=== PATIENT | male | born 1965 | race Caucasian/White ===

== ENCOUNTER 2020-11-08 13:38 | Inpatient (IN) | payer OTHER ==
[~2020-11-08] VITALS: Ht 180.3 cm; Wt 90.7 kg
[2020-11-08 14:47] LABS: ANION GAP 20.9 mmol/L (8-16); CALCIUM 8.7 mg/dL (8.5-10.1); CARBON DIOXIDE 23.5 mmol/L (21.0-32.0); CREATININE - SERUM 1.1 mg/dL (0.6-1.3); POTASSIUM - SERUM 3.4 mmol/L (3.5-5.1)
[2020-11-08 14:52] LABS: ALBUMIN 2.4 g/dL (3.4-5.0); BILIRUBIN - TOTAL 12.52 mg/dL (0.2-1.3); PROTEIN - SERUM 6.1 g/dL (6.4-8.2)
[2020-11-08 15:08] LABS: BASOPHILS 0.6 % (0-2); EOSINOPHILS 0 % (0-7); HEMATOCRIT 43.6 % (42.0-54.0); HEMOGLOBIN 14.9 g/dL (13.5-17.5); LYMPHOCYTES 4.7 % (15-50); MCH 39.1 pg (26.0-34.0); MCHC 34.2 g/dL (31.0-37.0); MCV 114.4 fL (80.0-100.0); NEUTROPHILS 79.7 % (40-80); PLATELET COUNT 193 10x3/uL (130-400); RBC 3.81 10x6/uL (4.20-6.10); RDW 16.7 % (11.5-14.5); WBC 8.5 10x3/uL (4.8-10.8)
[2020-11-08 15:36] LABS: BILIRUBIN 3+ (NEGATIVE); KETONE NEGATIVE mg/dL (< 1+); NITRITE NEGATIVE (NEGATIVE); UROBILINOGEN 12 mg/dL (< 2)
[2020-11-08] MEDS ORDERED: NORVASC5 MG PO (19:38)
[2020-11-08] MEDS ORDERED: PRINIVIL20 MG PO (19:38)
[2020-11-08] MEDS ORDERED: METOPROLOL TART25 MG PO (19:38)
[2020-11-08 20:00] VITALS: BP 126/77
[2020-11-08 23:00] VITALS: BP 125/95
[2020-11-08] MEDS ORDERED: NEURONTIN 300300 MG PO (23:05)
[2020-11-09 01:40] LABS: UDS - AMPHET NEGATIVE QUAL (NEGATIVE); UDS - BARB NEGATIVE QUAL (NEGATIVE); UDS - BENZO NEGATIVE QUAL (NEGATIVE); UDS - COCAINE NEGATIVE QUAL (NEGATIVE); UDS - OPIATE NEGATIVE QUAL (NEGATIVE); UDS - PCP NEGATIVE QUAL (NEGATIVE); UDS - THC NEGATIVE QUAL (NEGATIVE)
[2020-11-09 02:00] VITALS: BP 117/84
[2020-11-09 05:00] VITALS: BP 134/94
[2020-11-09 05:43] LABS: BASOPHILS 0.6 % (0-2); EOSINOPHILS 0.2 % (0-7); HEMATOCRIT 39.9 % (42.0-54.0); HEMOGLOBIN 13.8 g/dL (13.5-17.5); LYMPHOCYTES 8.5 % (15-50); MCH 39.7 pg (26.0-34.0); MCHC 34.6 g/dL (31.0-37.0); MCV 114.5 fL (80.0-100.0); MEAN PLATELET VOLUME 8.9 fL (7.4-10.4); MONOCYTES 14.3 % (2-11); NEUTROPHILS 76.4 % (40-80); PLATELET COUNT 170 10x3/uL (130-400); RBC 3.48 10x6/uL (4.20-6.10); RDW 16.7 % (11.5-14.5); WBC 7.9 10x3/uL (4.8-10.8)
[2020-11-09 05:57] LABS: APTT 33.6 SECONDS (22.8-39.4); INR 1.49 (0.85-1.17); PROTIME 16.7 SECONDS (11.6-15.0)
[2020-11-09 06:20] LABS: ALBUMIN 2.1 g/dL (3.4-5.0); ALKALINE PHOSPHATASE 133 U/L (30-120); ALT (SGPT) 44 U/L (10-68); BILIRUBIN - TOTAL 14.55 mg/dL (0.2-1.3); CHLORIDE - SERUM 98 mmol/L (98-107); MAGNESIUM - SERUM 1.7 mg/dL (1.8-2.4); PHOSPHOROUS 1.7 mg/dL (2.5-4.9); POTASSIUM - SERUM 3.2 mmol/L (3.5-5.1); PROTEIN - SERUM 5.4 g/dL (6.4-8.2); SODIUM 136 mmol/L (136-145)
[2020-11-09 06:24] LABS: CALC OSMOLALITY 270 mosm/kg (275-300); CARBON DIOXIDE 30.1 mmol/L (21.0-32.0); CREATININE - SERUM 0.7 mg/dL (0.6-1.3); GLUCOSE 76 mg/dL (74-106); UREA NITROGEN 13 mg/dL (7-18); eGFR NON AFRICAN AMERICAN > 90 mL/min (90-120)
--- NOTE | 2020-11-09 09:35 | NUR ---
PATIENT ASSISTED TO BSC. VERY SHAKEY AND UNSTEADY ON FEET. EXPELLED MODERATE AMOUNT HARD STOOL.
--- NOTE | 2020-11-09 10:00 | NUR ---
ASSISTED TO STAND AT BEDSIDE TO VOID. VERY SHAKEY. LARGE AMOUNT URINE ON FLOOR AND CLOTHING. ASSISTED TO CHANGE INTO GOWN.
--- NOTE | 2020-11-09 13:21 | NUR ---
REPORT CALLED TO [facility]/SURG. STATES ROOM IS NOT CLEAN. WILL CALL WHEN READY.
[2020-11-09 15:14] VITALS: BP 101/66; BMI 27.9
[2020-11-09 16:54] VITALS: BP 122/74
[2020-11-10] VITALS (7 sets, daily range): BP systolic 83–103; BP diastolic 40–68; Ht 180.3 cm; Wt 90.7 kg
--- NOTE | 2020-11-10 06:04 | NUR ---
I have reviewed this patient and I concur with the Shift Assessment completed by the Licensed Practical Nurse today this shift.
[2020-11-10 06:27] LABS: BASOPHILS 0.5 % (0-2); EOSINOPHILS 0.1 % (0-7); HEMATOCRIT 36.4 % (42.0-54.0); HEMOGLOBIN 12.5 g/dL (13.5-17.5); LYMPHOCYTES 10.6 % (15-50); MCHC 34.3 g/dL (31.0-37.0); MEAN PLATELET VOLUME 8.9 fL (7.4-10.4); MONOCYTES 11.8 % (2-11); PLATELET COUNT 177 10x3/uL (130-400); RBC 3.12 10x6/uL (4.20-6.10); RDW 16.7 % (11.5-14.5); WBC 8.1 10x3/uL (4.8-10.8)
[2020-11-10 06:37] LABS: MCV 116.6 fL (80.0-100.0)
[2020-11-10 06:55] LABS: BILIRUBIN - TOTAL 17.16 mg/dL (0.2-1.3); CALCIUM 7.8 mg/dL (8.5-10.1); CARBON DIOXIDE 28.1 mmol/L (21.0-32.0); MAGNESIUM - SERUM 1.6 mg/dL (1.8-2.4); POTASSIUM - SERUM 3.1 mmol/L (3.5-5.1); PROTEIN - SERUM 4.9 g/dL (6.4-8.2)
[2020-11-10 07:01] LABS: CREATININE - SERUM 1.4 mg/dL (0.6-1.3)
[2020-11-10 11:11] LABS: HEPATITIS C ANTIBODY <0.1 S/CO RAT (0.0-0.9)
[2020-11-11 04:00] VITALS: BP 105/72
[2020-11-11 06:14] LABS: BASOPHILS 0.3 % (0-2); EOSINOPHILS 0 % (0-7); HEMATOCRIT 37.2 % (42.0-54.0); HEMOGLOBIN 12.7 g/dL (13.5-17.5); LYMPHOCYTES 4.1 % (15-50); MCH 39.8 pg (26.0-34.0); MCHC 34.2 g/dL (31.0-37.0); MCV 116.5 fL (80.0-100.0); MEAN PLATELET VOLUME 8.5 fL (7.4-10.4); MONOCYTES 6.2 % (2-11); NEUTROPHILS 89.4 % (40-80); RBC 3.19 10x6/uL (4.20-6.10); RDW 16.5 % (11.5-14.5); WBC 7.2 10x3/uL (4.8-10.8)
[2020-11-11 06:16] LABS: PROTIME 19.7 SECONDS (11.6-15.0)
[2020-11-11 06:20] LABS: INR 1.84 (0.85-1.17)
[2020-11-11 06:24] LABS: PLATELET COUNT 221 10x3/uL (130-400)
[2020-11-11 06:31] LABS: ALKALINE PHOSPHATASE 109 U/L (30-120); ALT (SGPT) 40 U/L (10-68); BILIRUBIN - TOTAL 19.25 mg/dL (0.2-1.3); CALC OSMOLALITY 274 mosm/kg (275-300); CALCIUM 7.9 mg/dL (8.5-10.1); CHLORIDE - SERUM 101 mmol/L (98-107); GLUCOSE 90 mg/dL (74-106); MAGNESIUM - SERUM 1.8 mg/dL (1.8-2.4); POTASSIUM - SERUM 3.8 mmol/L (3.5-5.1); SODIUM 136 mmol/L (136-145); UREA NITROGEN 21 mg/dL (7-18); eGFR NON AFRICAN AMERICAN 83 mL/min (90-120)
--- NOTE | 2020-11-11 08:40 | NUR ---
PT. RESTING IN BED, AWAKE AND ALERT. IV INTACT TO R. HAND. REFUSES SCDS. TELE IS PACED 97. NO DISTRESS NOTED. FALL ALARM ON. CL WITHIN REACH. SRUPX2.
[2020-11-11 08:44] VITALS: BP 106/72
[2020-11-11 13:01] VITALS: BP 94/56
--- NOTE | 2020-11-11 14:15 | NUR ---
PT. HAD TWO STOOLS WITH BLOOD NOTED IN THE TOILET WATER. DR. TERRELL NOTIFIED OF THIS. NO NEW ORDERS.
--- NOTE | 2020-11-11 14:56 | MORECARE ---
CASE MANAGEMENT DISCHARGE SUMMARY PATIENT: DAI ASTORGA UNIT: [id number] ADM DATE: 11/08/20 AGE: 55 : 69 SEX: M ROOM/BED: D.2214 AUTHOR: JEREMY,DOC PHYSICIAN: REFERRING PHYSICIAN: OLLIE TORRES DO DATE OF SERVICE: 11/11/20 Case Management Discharge Planning Summary COMMENTS ENTERED DATE: 11/11/20 14:50 CT COMMENT TYPE: Discharge Planning REVIEWER: Lesley Samson CM met with patient to complete initial dc planning assessment. CM educated patient on the CM role and verbal consent given by patient to complete assessment. Patient lives IN [place], but has been staying with his parents this past 8 weeks because he has been sick. At discharge patient plans to return to his parents and feels this is a safe discharge. CM discussed availability of home health, rehab services, and medical equipment. He stated that he would like go to rehab at [facility] when he is able. He did not use any DME, but his leg are not working and he is having to use a walker here. CARLA signed. He see's a Jose Ray in [place]. He stated that he has family to pick him up when he is able to DC. Patient denied known discharge needs at this time. CM will continue to follow and will assist as needed with dc plans/needs. DCP REVIEW SUMMARY ANTICIPATED D/C DATE: EXPECTED LOS : CASE STATUS: DCP Initiated INITIAL REVIEW: 11/08/2020 INITIAL REVIEWER: Lesley Samson FINAL DISCHARGE DISPOSITION: : FINAL REVIEWER: FINAL REVIEW DATE: DCP [employer] Questions & Answers QUESTION: ANSWER : PATIENT: DAI ASTORGA ENCOUNTER: [id number] MEDICAL RECORD#: [id number] ADMISSION DATE: 11/08/2020 DISCHARGE DATE: ATTENDING MD: OLLIE DAVIS : AGE: 55 MARITAL STATUS: S DC PLAN ID: [id number] FACILITY: [facility] PRINTED ON: 11/11/20 14:56 CT All edits/amendments must be made on the electronic document DICTATION DATE: 11/11/201455 GRIEVANCE MANAGER: TASHA 11/11/201455 RPT#: [id number] DC DATE: STATUS: ADM IN [facility] [address] [place] [address] END OF REPORT
[2020-11-11 16:37] VITALS: BP 93/58
[2020-11-11 20:00] VITALS: BP 96/65
[2020-11-12] VITALS: BP 98/68
[2020-11-12 04:00] VITALS: BP 102/70
[2020-11-12 07:21] LABS: INR 1.71 (0.85-1.17); PROTIME 18.6 SECONDS (11.6-15.0)
[2020-11-12 07:31] LABS: BASOPHILS 0.3 % (0-2); EOSINOPHILS 0 % (0-7); HEMATOCRIT 36.8 % (42.0-54.0); HEMOGLOBIN 12.5 g/dL (13.5-17.5); LYMPHOCYTES 5.8 % (15-50); MCH 39.5 pg (26.0-34.0); MCHC 33.9 g/dL (31.0-37.0); MCV 116.5 fL (80.0-100.0); MEAN PLATELET VOLUME 8.1 fL (7.4-10.4); NEUTROPHILS 83.9 % (40-80); RBC 3.16 10x6/uL (4.20-6.10); RDW 16.4 % (11.5-14.5)
[2020-11-12 07:33] LABS: PLATELET COUNT 272 10x3/uL (130-400); WBC 9.7 10x3/uL (4.8-10.8)
[2020-11-12 07:34] LABS: ALKALINE PHOSPHATASE 119 U/L (30-120); ALT (SGPT) 41 U/L (10-68); BILIRUBIN - TOTAL 17.66 mg/dL (0.2-1.3); CALC OSMOLALITY 274 mosm/kg (275-300); CALCIUM 8.2 mg/dL (8.5-10.1); CARBON DIOXIDE 24.8 mmol/L (21.0-32.0); CHLORIDE - SERUM 102 mmol/L (98-107); CREATININE - SERUM 0.8 mg/dL (0.6-1.3); GLUCOSE 83 mg/dL (74-106); MAGNESIUM - SERUM 1.9 mg/dL (1.8-2.4); PROTEIN - SERUM 4.9 g/dL (6.4-8.2); SODIUM 137 mmol/L (136-145); UREA NITROGEN 19 mg/dL (7-18); eGFR NON AFRICAN AMERICAN > 90 mL/min (90-120)
[2020-11-12 07:37] LABS: POTASSIUM - SERUM 3.2 mmol/L (3.5-5.1)
--- NOTE | 2020-11-12 08:00 | NUR ---
PATIENT IN BED WITH IV INTACT. NO COMPLAINTS AT THIS TIME. CALL LIGHT WITHIN REACH.
--- NOTE | 2020-11-12 08:54 | NUR ---
I AM FOLLOWING UP ON REFERRALS RECEIVED WHILE I WAS IN TRAINING. MR ASTORGA IS CURRENTLY ON A FULL LIQUID DIET, AND WOULD NEED TO BE ABLE TO TOLERATE A REGULAR DIET. HE IS VERY DECONDITIONED AT THIS TIME. HIS PHYSICAL THERAPY IS STILL PENDING WELL. SECONDARY TO PATIENTS DRINKING, IT IS FELT HIS TREMORS HE IS EXPERIENCING MAY BE RELATED TO DT'S, AND THEREFORE HE WOULD NEED TO BE WATCHED A LITTLE LONGER BEFORE COMPLETING THE SCREEN AND SUBMITTING TO [facility] FOR AUTH. WE WILL CONTINUE TO FOLLOW. THANK YOU FOR THIS REFERRAL. STEPHANY LINARES RN CLINICAL LIAISON, INPATIENT REHAB.
[2020-11-12 09:39] VITALS: BP 103/61
[2020-11-12 13:39] VITALS: BP 89/56
--- NOTE | 2020-11-12 14:19 | NUR ---
OT NOTE: ASSISTED PT TO EOB WITH MIN ASSIST; STATIC SITTING WITH FAIR BALANCE; PRACTICED SIT TO STAND EXS WITH USE OF RW; EDUCATION REGARDING WT SHIFTING FORWARD PT CONTINUALLY LEANING BACKWARDS WHILE IN STANDING; TRANSFERS WITH WALKER AND IN ASSIST; STANDING BALANCE ACT WITH TACTILE CUES.. PT EXHIBITS DIFFICULTY WIHT BALANCE DUE TO IMPAIRED SENSATION IN LES; ABLE PERFORM SEVERAL GROOMING TASKS WITH SET UP.. TREMORS NOT BAD YESTERDAY, HOWEVER, APPEARS MORE JAUNDICED THAN PREVIOUS DAY. AMB INTO HALLWAY APPROX 25 FT WITH MIN ASSIST FOR BALANCE AND ASSIST FOR EQUIP MGMT. ESSENCE CHAVARRIA, OTR/L [id number]
--- NOTE | 2020-11-12 15:23 | NUR ---
PATIENT IN BED WITH IV INTACT. NO COMPLAINTS OR SIGNS OF DISTRESS. BA ON. CALL LIGHT WITHINR EACH.
[2020-11-12 18:13] VITALS: BP 108/71
[2020-11-12 21:05] VITALS: BP 105/69
[2020-11-13 00:44] VITALS: BP 106/66
[2020-11-13 05:56] VITALS: BP 103/62
[2020-11-13 06:31] LABS: INR 1.68 (0.85-1.17); PROTIME 18.4 SECONDS (11.6-15.0)
[2020-11-13 06:36] LABS: BASOPHILS 0.2 % (0-2); EOSINOPHILS 0 % (0-7); HEMATOCRIT 36.9 % (42.0-54.0); HEMOGLOBIN 12.5 g/dL (13.5-17.5); LYMPHOCYTES 7.6 % (15-50); MCH 39.1 pg (26.0-34.0); MCHC 33.9 g/dL (31.0-37.0); MCV 115.2 fL (80.0-100.0); MEAN PLATELET VOLUME 8.4 fL (7.4-10.4); MONOCYTES 10.6 % (2-11); NEUTROPHILS 81.6 % (40-80); PLATELET COUNT 268 10x3/uL (130-400); RBC 3.21 10x6/uL (4.20-6.10); RDW 16.1 % (11.5-14.5); WBC 9.2 10x3/uL (4.8-10.8)
[2020-11-13 06:41] LABS: ALBUMIN 1.9 g/dL (3.4-5.0); ALKALINE PHOSPHATASE 111 U/L (30-120); ALT (SGPT) 41 U/L (10-68); BILIRUBIN - TOTAL 18.44 mg/dL (0.2-1.3); CALCIUM 8.3 mg/dL (8.5-10.1); CREATININE - SERUM 0.9 mg/dL (0.6-1.3); GLUCOSE 75 mg/dL (74-106); PROTEIN - SERUM 4.8 g/dL (6.4-8.2); UREA NITROGEN 15 mg/dL (7-18); eGFR NON AFRICAN AMERICAN > 90 mL/min (90-120)
[2020-11-13 07:01] LABS: CALC OSMOLALITY 273 mosm/kg (275-300); CHLORIDE - SERUM 103 mmol/L (98-107); POTASSIUM - SERUM 3.4 mmol/L (3.5-5.1); SODIUM 137 mmol/L (136-145)
--- NOTE | 2020-11-13 09:08 | NUR ---
AAOX4 UPON ENTERING. ADMINISTERED MEDICATION AT THIS TIME, NO DIFFICULTIES. RESTING COMFORTABLY IN BED. DENIES ANY NEEDS AT THIS TIME. BED IN LOWEST POSITION BED RAILS X2, CALL LIGHT WITHIN REACH. WILL CONTINUE POC. ASSESSMENT PERFORMED
[2020-11-13 09:34] VITALS: BP 96/64
--- NOTE | 2020-11-13 11:16 | NUR ---
MEDS GIVEN. DENIES NEEDS AT THIS TIME.
--- NOTE | 2020-11-13 13:22 | NUR ---
STATES, "I WAS EATING AND MY HAND FELT WET AND WHEN I LOOKED DOWN MY IV WAS OUT." CATHETER TIP INTACT, NO BLEEDING. WILL RESITE
--- NOTE | 2020-11-13 14:18 | NUR ---
HAS BEEN UP IN ROOM TODAY. PATIENT IS WITHOUT DISTRESS.
[2020-11-13 14:53] VITALS: BP 95/68
--- NOTE | 2020-11-13 16:56 | NUR ---
RESTING IN BED. DENIES NEEDS AT THIS TIME. WILL CONTINUE POC.
[2020-11-13 17:30] VITALS: BP 97/73
--- NOTE | 2020-11-13 19:38 | NUR ---
I have reviewed this patient and I concur with the Shift Assessment completed by the Licensed Practical Nurse today this shift.
[2020-11-13 20:00] VITALS: BP 101/57
[2020-11-14 06:00] LABS: ALBUMIN 1.8 g/dL (3.4-5.0); ALKALINE PHOSPHATASE 115 U/L (30-120); ALT (SGPT) 47 U/L (10-68); BASOPHILS 0.3 % (0-2); BILIRUBIN - TOTAL 18.48 mg/dL (0.2-1.3); CALC OSMOLALITY 272 mosm/kg (275-300); CALCIUM 8.4 mg/dL (8.5-10.1); CARBON DIOXIDE 23.2 mmol/L (21.0-32.0); CHLORIDE - SERUM 106 mmol/L (98-107); CREATININE - SERUM 0.7 mg/dL (0.6-1.3); EOSINOPHILS 0.1 % (0-7); GLUCOSE 86 mg/dL (74-106); HEMATOCRIT 34.5 % (42.0-54.0); HEMOGLOBIN 11.7 g/dL (13.5-17.5); LYMPHOCYTES 5.4 % (15-50); MAGNESIUM - SERUM 1.9 mg/dL (1.8-2.4); MCH 39.5 pg (26.0-34.0); MCV 116.3 fL (80.0-100.0); MEAN PLATELET VOLUME 8.3 fL (7.4-10.4); MONOCYTES 11.6 % (2-11); NEUTROPHILS 82.6 % (40-80); PLATELET COUNT 281 10x3/uL (130-400); POTASSIUM - SERUM 3.9 mmol/L (3.5-5.1); PROTEIN - SERUM 4.6 g/dL (6.4-8.2); RBC 2.97 10x6/uL (4.20-6.10); RDW 16.6 % (11.5-14.5); SODIUM 137 mmol/L (136-145); UREA NITROGEN 12 mg/dL (7-18); WBC 9.7 10x3/uL (4.8-10.8); eGFR NON AFRICAN AMERICAN > 90 mL/min (90-120)
[2020-11-14 07:22] LABS: INR 1.76 (0.85-1.17); PROTIME 19.1 SECONDS (11.6-15.0)
[2020-11-14 08:50] VITALS: BP 103/62
--- NOTE | 2020-11-14 09:40 | NUR ---
AAOX4 UPON ENTERING. MORNING MEDS GIVEN, NO DIFFICULTIES. RESTING COMFORTABLY IN BED. DENIES ANY NEEDS AT THIS TIME. BED IN LOWEST POSITION, BED RAILS X2, CALL LIGHT WITHIN REACH. WILL CONTINUE POC. ASSESSMENT PERFORMED
--- NOTE | 2020-11-14 11:44 | NUR ---
IV CAME OUT WHILE IN SHOWER. CATHETER TIP INTACT. NO BLEEDING. WILL SEE IF IV IS STILL NEEDED.
[2020-11-14 12:56] VITALS: BP 99/64
--- NOTE | 2020-11-14 16:10 | NUR ---
NEW IV TO RIGHT UPPER ARM, NS @ 100. DENIES ANY NEEDS AT THIS TIME. WILL CONTINUE POC
[2020-11-14 16:38] VITALS: BP 109/74
[2020-11-14 20:00] VITALS: BP 111/63
[2020-11-15 06:28] LABS: BASOPHILS 0.2 % (0-2); EOSINOPHILS 0.1 % (0-7); HEMATOCRIT 34.9 % (42.0-54.0); HEMOGLOBIN 11.8 g/dL (13.5-17.5); LYMPHOCYTES 4.5 % (15-50); MCH 39.2 pg (26.0-34.0); MCHC 33.8 g/dL (31.0-37.0); MCV 115.9 fL (80.0-100.0); MEAN PLATELET VOLUME 8.5 fL (7.4-10.4); MONOCYTES 8.7 % (2-11); NEUTROPHILS 86.5 % (40-80); PLATELET COUNT 308 10x3/uL (130-400); RBC 3.01 10x6/uL (4.20-6.10); WBC 10.8 10x3/uL (4.8-10.8)
[2020-11-15 06:34] LABS: INR 1.75 (0.85-1.17)
[2020-11-15 06:45] LABS: ALBUMIN 1.7 g/dL (3.4-5.0); ALKALINE PHOSPHATASE 119 U/L (30-120); ALT (SGPT) 57 U/L (10-68); BILIRUBIN - TOTAL 19.17 mg/dL (0.2-1.3); CALC OSMOLALITY 278 mosm/kg (275-300); CALCIUM 8.7 mg/dL (8.5-10.1); CARBON DIOXIDE 22.5 mmol/L (21.0-32.0); CHLORIDE - SERUM 107 mmol/L (98-107); CREATININE - SERUM 0.8 mg/dL (0.6-1.3); GLUCOSE 95 mg/dL (74-106); PROTEIN - SERUM 4.4 g/dL (6.4-8.2); SODIUM 139 mmol/L (136-145); UREA NITROGEN 14 mg/dL (7-18); eGFR NON AFRICAN AMERICAN > 90 mL/min (90-120)
--- NOTE | 2020-11-15 07:10 | NUR ---
REC'D IN BED AWAKE AND ALERT. RESP EVEN AND UNLABORED WITH NO DISTRESS NOTED CAN EXPRESS NEEDS AND WANTS. NO C/O NOTED OR VOICED AT THIS TIME. ASSESSMENT COMPLETED. C/L IN REACH AT BEDSIDE.
[2020-11-15 09:23] VITALS: BP 94/60
--- NOTE | 2020-11-15 11:10 | NUR ---
OT NOTE: PT REQUIRED CGA FOR SIT TO STAND WITH RW. PT COMPLETED ADL MOBILITY TO TOILET USING RW WITH CGA. PT REQUIRED CGA FOR CLOTHING MANAGEMENT. PT COMPLETED HYGIENE WITH SBA. PT COMPLETED ORAL HYGIENE IN STANDING AT SINK WITH CGA-SBA. PT COMPLETED HAND HYGIENE IN STANDING AT SINK WITH CGA-SBA. PT COMPLETED HAIR GROOMING AT STANDING AT SINK WITH CGA-SBA. PT UMM/DOFF SOCKS AT EOB WITH SBA. [id number] THANK YOU, PEDRO ASHRAF
[2020-11-15 12:55] VITALS: BP 99/68
--- NOTE | 2020-11-15 13:36 | NUR ---
I have reviewed this patient and I concur with the Shift Assessment completed by the Licensed Practical Nurse today this shift.
--- NOTE | 2020-11-15 13:40 | NUR ---
Nutrition follow-up/reassessment: Diet order: full liquids po intake 25, 100, 100% of meals Labs reviewed; Bili: 19.17, NH3: 88 Ht: 5'11" Wt: 199# +BM Estimated needs, nutrition diagnosis, nutrition goals, interventions remain the same as initial assessment on 11/10/20. Recommend pt receive an HS snack to prevent overnight starvation. RDN will order. RDN will follow-up on pts progress sin 3-5 days.
[2020-11-15 16:46] VITALS: BP 97/57
[2020-11-15 20:00] VITALS: BP 104/68
[2020-11-16] VITALS (7 sets, daily range): BP systolic 96–110; BP diastolic 48–70
[2020-11-16 05:46] LABS: HEMATOCRIT 36.5 % (42.0-54.0); HEMOGLOBIN 12.2 g/dL (13.5-17.5); MCH 39.3 pg (26.0-34.0); MCHC 33.3 g/dL (31.0-37.0); MEAN PLATELET VOLUME 8.6 fL (7.4-10.4); PLATELET COUNT 299 10x3/uL (130-400); RBC 3.09 10x6/uL (4.20-6.10); RDW 16.1 % (11.5-14.5); WBC 11.5 10x3/uL (4.8-10.8)
[2020-11-16 05:56] LABS: INR 1.77 (0.85-1.17); PROTIME 19.1 SECONDS (11.6-15.0)
[2020-11-16 06:18] LABS: ALBUMIN 1.7 g/dL (3.4-5.0); ANION GAP 14.3 mmol/L (8-16); BILIRUBIN - DIRECT 17.34 mg/dL (0.00-0.30); BILIRUBIN - INDIRECT 2.53 mg/dL (0.00-1.00); BILIRUBIN - TOTAL 19.87 mg/dL (0.2-1.3); CALCIUM 8.6 mg/dL (8.5-10.1); CARBON DIOXIDE 22.5 mmol/L (21.0-32.0); POTASSIUM - SERUM 3.8 mmol/L (3.5-5.1); PROTEIN - SERUM 4.6 g/dL (6.4-8.2)
[2020-11-16 06:23] LABS: CREATININE - SERUM 1.1 mg/dL (0.6-1.3)
--- NOTE | 2020-11-16 07:15 | NUR ---
REC'D IN BED AWAKE. RESP EVEN AND UNLABORED WITH NO DISTRESS NOTED. CAN EXPRESS NEEDS AND WANTS. NO C/O NOTED OR VOICED. ASSESSMENT COMPLETED. C/L IN REACH.
[2020-11-16 14:05] LABS: ANISOCYTOSIS OCC; LYMPHOCYTES 4 % (15-50); MONOCYTES 6 % (2-11); NEUTROPHILS 89 % (40-80); PLATELET ESTIMATE NORMAL; ROULEAUX OCC
--- NOTE | 2020-11-16 15:07 | NUR ---
OT NOTE: PT ABLE TO PERFORM BED MOB WITH SPV; IN ROOM AMBULATION WITH RW AND SBA; AMB 300+ FT WITH RW AND SBA TO IMPROVE STRENGTH AND FUNCTIONAL ENDUFRANCE; ABLE TO UMM GOWN WITH SET UP; ABLE TO WASH HANDS AT SINK WITH SBA. PT DOING MUCH BETTER.. DID NOT REQUIRE REST BREAK DURING AMB IN HALLWAY. ESSENCE VANEGAS, OTR/L [id number]
--- NOTE | 2020-11-16 15:10 | NUR ---
PATIENT WAS ABLE TO AMBULATE 300+ FEET WITH JUST STAND BY ASSIST WITH OCCUPATIONAL THERAPY TODAY. HE WAS ABLE TO PERFORM ADL'S WITH SET UP OR JUST STAND BY ASSIST. HE ACTUALLY REFUSED PHYSICAL THERAPY TODAY, BUT WALKED 125 FT WITH THEM YESTERDAY WITH STAND BY ASSIST. THE PATIENT DOES NOT SHOW THE NEED FOR 3 HOURS OF THERAPY AT THIS TIME AND THEREFORE DOES NOT MEET THE REQUIREMENTS FOR INPATIENT REHAB. I HAVE NOTIFIED ESSENCE WALTON RN CASE MANAGER. THANK YOU FOR THIS REFERRAL. Calvin LINARES RN CLINICAL LIAISON, INPATIENT REHAB.
--- NOTE | 2020-11-16 17:35 | NUR ---
I have reviewed this patient and I concur with the Shift Assessment completed by the Licensed Practical Nurse today this shift.
[2020-11-17 03:53] VITALS: BP 109/55
[2020-11-17 05:46] LABS: BASOPHILS 0.1 % (0-2); EOSINOPHILS 0.1 % (0-7); HEMATOCRIT 35.5 % (42.0-54.0); LYMPHOCYTES 2.9 % (15-50); MCH 38.7 pg (26.0-34.0); MCHC 33.7 g/dL (31.0-37.0); MEAN PLATELET VOLUME 8.7 fL (7.4-10.4); MONOCYTES 5.8 % (2-11); NEUTROPHILS 91.1 % (40-80); PLATELET COUNT 284 10x3/uL (130-400); RDW 15.9 % (11.5-14.5); WBC 12.9 10x3/uL (4.8-10.8)
[2020-11-17 06:01] LABS: MCV 114.7 fL (80.0-100.0)
[2020-11-17 06:06] LABS: INR 1.69 (0.85-1.17); PROTIME 18.5 SECONDS (11.6-15.0)
[2020-11-17 06:17] LABS: ALBUMIN 1.7 g/dL (3.4-5.0); ALKALINE PHOSPHATASE 147 U/L (30-120); ALT (SGPT) 83 U/L (10-68); CALC OSMOLALITY 275 mosm/kg (275-300); CALCIUM 8.9 mg/dL (8.5-10.1); CARBON DIOXIDE 21.7 mmol/L (21.0-32.0); CHLORIDE - SERUM 105 mmol/L (98-107); GLUCOSE 93 mg/dL (74-106); POTASSIUM - SERUM 3.7 mmol/L (3.5-5.1); PROTEIN - SERUM 4.5 g/dL (6.4-8.2); SODIUM 137 mmol/L (136-145); UREA NITROGEN 18 mg/dL (7-18)
[2020-11-17 06:18] LABS: CREATININE - SERUM 0.8 mg/dL (0.6-1.3); eGFR NON AFRICAN AMERICAN > 90 mL/min (90-120)
--- NOTE | 2020-11-17 07:30 | NUR ---
REC'D IN BED EYES OPEN WATCHING TV. RESP EVEN AND UNALBORED WITH NO DISTRESS NOTED. CAN EXPRESS NEEDS AND WANTS. NO C/O NOTED OR VOICED. ASSESSMENT COMPLETED. C/L IN REACH AT BEDSIDE.
[2020-11-17 07:41] VITALS: BP 99/65
[2020-11-17] MEDS ORDERED: NICODERM CQ1 EAC3 TRANSDERM (09:44)
[2020-11-17] MEDS ORDERED: QUESTRAN LIG1 PACKET PO (09:45)
[2020-11-17] MEDS ORDERED: ALDACTONE25 MG PO (09:45)
[2020-11-17] MEDS ORDERED: CARAFATE1 G PO (09:46)
[2020-11-17] MEDS ORDERED: CHRONULAC30 ML PO (09:46)
[2020-11-17] MEDS ORDERED: PROTONIX40 MG PO (09:46)
[2020-11-17] MEDS ORDERED: PREDNISONE20 MG PO (09:47)
[2020-11-17] MEDS ORDERED: VITAMIN B-1100 M1 PO (09:47)
[2020-11-17] MEDS ORDERED: FOLIC ACID1 MG PO (09:47)
[2020-11-17] MEDS ORDERED: LASIX20 MG PO (09:49)
[2020-11-17] MEDS ORDERED: ELIQUIS2.5 MG PO (09:51)
[2020-11-17] MEDS ORDERED: LIBRIUM5 MG PO (09:54)
[2020-11-17 11:03] VITALS: BP 100/75
--- NOTE | 2020-11-17 12:06 | MORECARE ---
CASE MANAGEMENT DISCHARGE SUMMARY PATIENT: DAI ASTORGA UNIT: [id number] ADM DATE: 11/08/20 AGE: 55 : 69 SEX: M ROOM/BED: D.2214 AUTHOR: JEREMY,DOC PHYSICIAN: REFERRING PHYSICIAN: OLLIE TORRES DO DATE OF SERVICE: 11/17/20 Case Management Discharge Planning Summary COMMENTS ENTERED DATE: 11/17/20 12:03 CT COMMENT TYPE: Discharge Planning REVIEWER: Glenna Albrecht I have talked to [facility], [place], [facility] and [facility] [place]. They all state they are not taking [employer] insurance. This patient will need to follow up with Dr. Wing in one week for appointment and labs. I am notifying Alycia KHAN now. CM to follow and assist as needed. ENTERED DATE: 11/17/20 11:55 CT COMMENT TYPE: Discharge Planning REVIEWER: Glenna Albrecht CM met with patient at bedside after obtaining verbal consent. CM discussed availability / needs of home health, REHAB and medical equipment. Patient states has a walker at home. Plans to stay with his mom at discharge. She lives at [address] [place] [address], phone number [phone]. CARLA signed for home health. I have faxed referral to [facility] but they have declined. I faxed to [facility], now waiting for confirmation they will see him. His pcp is in [place] a Dr. Karin Garcia. Patient to ks today. CM to follow and assist as needed. ENTERED DATE: 11/11/20 14:50 CT COMMENT TYPE: Discharge Planning REVIEWER: Lesley Samson CM met with patient to complete initial dc planning assessment. CM educated patient on the CM role and verbal consent given by patient to complete assessment. Patient lives IN [place], but has been staying with his parents this past 8 weeks because he has been sick. At discharge patient plans to return to his parents and feels this is a safe discharge. CM discussed availability of home health, rehab services, and medical equipment. He stated that he would like go to rehab at [facility] when he is able. He did not use any DME, but his leg are not working and he is having to use a walker here. CARLA signed. He see's a Jose Ray in [place]. He stated that he has family to pick him up when he is able to DC. Patient denied known discharge needs at this time. CM will continue to follow and will assist as needed with dc plans/needs. DCP REVIEW SUMMARY ANTICIPATED D/C DATE: EXPECTED LOS : CASE STATUS: DCP Initiated INITIAL REVIEW: 11/08/2020 INITIAL REVIEWER: Lesley Samson FINAL DISCHARGE DISPOSITION: : FINAL REVIEWER: FINAL REVIEW DATE: DCP [facility] Questions & Answers QUESTION: ANSWER : PATIENT: DAI ASTORGA ENCOUNTER: [id number] MEDICAL RECORD#: [id number] ADMISSION DATE: 11/08/2020 DISCHARGE DATE: ATTENDING MD: OLLIE DAVIS : AGE: 55 MARITAL STATUS: S DC PLAN ID: [id number] FACILITY: [facility] PRINTED ON: 11/17/20 12:06 CT All edits/amendments must be made on the electronic document DICTATION DATE: 11/17/201205 CLIENT PROGRAM MANAGER: TASHA 11/17/201205 RPT#: [id number] DC DATE: STATUS: ADM IN [facility] [address] [place] [address] END OF REPORT
--- NOTE | 2020-11-17 14:11 | NUR ---
I have reviewed this patient and I concur with the Shift Assessment completed by the Licensed Practical Nurse today this shift.
--- NOTE | 2020-11-17 15:48 | NUR ---
PT DC HOME AT THIS TIME WT[facility] ALL PERSONAL BELONGING, VOICES UNDERSTANDING OF DC ORDERS. IV DC STABLE CONDITION UPON DEPARTURE.
== END 2020-11-17 15:50 | disposition home or self-care (01) | DRG 432 ==
LOC: D.ER 13:38 → D.EDHOLD 21:31 → D.MS 21:31
PROVIDERS: Emergency Medicine; Family Medicine; Internal Medicine Gastroenterology; ADMIT Family Medicine; ATTEND Family Medicine
DX: K70.40 Alcoholic hepatic failure without coma (principal); I81 Portal vein thrombosis; D68.59 Other primary thrombophilia; E87.1 Hypo-osmolality and hyponatremia; N17.9 Acute kidney failure, unspecified; F10.931 Alcohol use, unspecified with withdrawal delirium; D75.89 Other specified diseases of blood and blood-forming organs; E87.6 Hypokalemia; I10 Essential (primary) hypertension; Z72.89 Other problems related to lifestyle; F32.9 Major depressive disorder, single episode, unspecified; G62.9 Polyneuropathy, unspecified; Z72.0 Tobacco use; K72.90 Hepatic failure, unspecified without coma; K70.10 Alcoholic hepatitis without ascites; R74.01 Elevation of levels of liver transaminase levels